=== PATIENT | female | born 1960 | race Caucasian/White ===

== ENCOUNTER 2022-07-13 20:14 | Emergency (ER) | payer OTHER ==
[2022-07-13 20:29] VITALS: BP 127/55; PULSE 76; RESP 18; TEMP 98; BMI 25.0
[2022-07-13] MEDS ORDERED: ACETAMINOPHEN 325 MG TABLET (FP) ONE ×2 (21:32→21:33)
[2022-07-13] MEDS ORDERED: ACETAMINOPHEN 325 MG TABLET (FP) PO ONE (21:32)
[2022-07-13] MEDS ORDERED: CYCLOBENZAPRINE HCL 10 MG TABLET (FP) PO ONE (22:05)
[2022-07-13] MEDS ORDERED: CYCLOBENZAPRINE HCL 10 MG TABLET (FP) ONE (22:06)
== END 2022-07-13 22:12 | disposition home or self-care (01) ==
LOC: JER 20:14
DX: R51.9 Headache, unspecified (principal); V49.50XA Passenger injured in collision with unspecified motor vehicles in traffic accident, initial encounter
CPT/HCPCS: 70450-TC; 72125-TC; 99284-25

== ENCOUNTER 2022-10-07 04:29 | Day surgery (SDC) | payer OTHER ==
[2022-10-04 15:31] VITALS: BMI 24.7
[2022-10-07 11:28] VITALS: TEMP 97.8
[2022-10-07 12:02] VITALS: BP 128/53; PULSE 65; RESP 18
== END 2022-10-07 12:20 | disposition home or self-care (01) ==
LOC: JASU-ENDO 04:29
PROVIDERS: ATTEND Internal Medicine Gastroenterology
PROC: 0DJD8ZZ Inspection of Lower Intestinal Tract, Via Natural or Artificial Opening Endoscopic (ICD-10-PCS; principal; 2022-10-07 12:00)
DX: Z12.11 Encounter for screening for malignant neoplasm of colon (principal); K57.30 Diverticulosis of large intestine without perforation or abscess without bleeding